=== PATIENT | male | born 1980 | race Caucasian/White ===

== ENCOUNTER 2018-03-19 09:12 | Emergency (ER) | payer BC, OTHER, SELFPAY ==
[2018-03-19] MEDS ORDERED: Morphine 10 MG/ML VIAL ONE (09:21)
[2018-03-19] MEDS ORDERED: Ondansetron ODT 4 MG TAB ONE (09:21)
[2018-03-19] MEDS ORDERED: Fentanyl 100 MCG/2 ML VIAL ONE (10:00)
--- NOTE | 2018-03-19 10:38 | RAD ---
FRONTAL VIEW CHEST: Date: 03/19/18 Reference made to 08/29/12. INDICATION: Injury, chest pain. FINDINGS: Lungs are clear. No effusion or pneumothorax. Cardiomediastinal silhouette is normal in size for port able technique. Osseous structures are nonacute in appearance. IMPRESSION: No focal consolidation. POS: [facility]
--- NOTE | 2018-03-19 10:42 | RAD ---
THREE VIEW LEFT HAND SERIES: Indication: Left hand injury. FINDINGS: Chronic osseous deformity involves the third digit with associated joint space narrowing of the IP benjamin int. There is a ventrally located osseous excrescence of the distal diaphysis of the third digit prox imal phalanx. Interspersed areas of punctate lucencies are present within the third digit proximal ph alanx. No evidence of acute fracture. IMPRESSION: Chronic appearing osseous deformity of the third digit with associated osseous excrescence and puncta te interspersed osseous lucencies as discussed above. This corresponds to sequellae from healed, duc te fracture deformity. POS: [facility]
--- NOTE | 2018-03-19 10:53 | RAD ---
TWO VIEWS LEFT SHOULDER: Date: 03-19-18 History: Injury to left shoulder. Reduction imaging. Comparison: 03-19-18 at 0945 hours. FINDINGS: There has been interval reduction in previously noted left anterior shoulder dislocation. No dislocat ion is seen on the current exam. There is no fracture identified. There is mild left acromioclavicula r joint osteoarthritis. No other findings. IMPRESSION: 1. Interval reduction of previously noted anterior shoulder dislocation. There is no dislocation or f racture seen on the current images. 2. Mild left acromioclavicular joint osteoarthritis. POS: [facility]
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
== END 2018-03-19 11:02 | disposition home or self-care (01) ==
LOC: MADERS 09:12
DX: S43.015A Anterior dislocation of left humerus, initial encounter (principal); S60.222A Contusion of left hand, initial encounter; K21.9 Gastro-esophageal reflux disease without esophagitis; F32.9 Major depressive disorder, single episode, unspecified; Z79.899 Other long term (current) drug therapy; W55.22XA Struck by cow, initial encounter
CPT/HCPCS: 23650; 71045; 96372; 96374; J2001; J2270; J3010; Q0162

== ENCOUNTER 2022-05-28 16:41 | Emergency (ER) | payer SELFPAY | END 2022-05-28 17:18 | disposition home or self-care (01) | LOC: MADERS 16:41 | DX: K04.7 Periapical abscess without sinus (principal); K03.81 Cracked tooth; K02.9 Dental caries, unspecified; K21.9 Gastro-esophageal reflux disease without esophagitis; F17.220 Nicotine dependence, chewing tobacco, uncomplicated | CPT/HCPCS: 99282 ==

== ENCOUNTER 2022-08-22 23:22 | Emergency (ER) | payer SELFPAY ==
[2022-08-22] MEDS ORDERED: Ketorolac Tromethamine 30 MG/ML VIAL ONE (23:46)
[2022-08-22] MEDS ORDERED: Ondansetron PF 4 MG/2 ML Vial ONE (23:53)
[2022-08-23 00:15] LABS: #Basophils 0.1 thou/uL (0.0-0.2); #Lymphocytes 1.1 thou/uL (1.20-3.40); #Monocytes 0.5 thou/uL (0.11-0.59); #Neutrophils 13.7 thou/uL (1.40-6.50); %Basophils 0.5 % (0.0-1.0); %Eosinophils 0.3 % (0.0-10.0); %Lymphocytes 6.8 % (21.0-51.0); %Monocytes 3.3 % (0.0-10.0); %Neutrophils 89.1 % (42.0-75.0); Hemoglobin 16.2 g/dL (14.0-18.0); Mean Corpuscular HGB CONC 33.9 g/dL (32.0-36.0); Mean Corpuscular Hemoglobin 29.2 pg (27.0-31.0); Mean Corpuscular Volume 86.2 fL (78.0-98.0); Mean Platelet Volume 6.5 fL (7.4-10.4); Platelet Count 408 thou/uL (130-400); Red Blood Cell (RBC) Count 5.53 mill/uL (4.70-6.10); White Blood Cell (WBC) Count 15.4 thou/uL (4.8-10.8)
[2022-08-23 00:26] LABS: Bilirubin Negative (Negative); Blood, Urine Large (Negative); Clarity Slightly Cloudy (Clear); Glucose, Urine (Dipstick) Negative (Negative); Ketone, Urine 15 mg/dL (Negative); Leukocyte Negative (Negative); Nitrite Negative (Negative); Protein, Urine (Dipstick) 30 mg/dL (Neg-Trace); Specific Gravity, Urine 1.026 (1.002-1.036); Urobilinogen 0.2 mg/dL (Less than 2)
[2022-08-23 00:27] LABS: Bacteria/HPF 1+ HPF (None Seen); Calcium Oxalate Crystals 2+ HPF (None Seen); RBC/HPF Greater than 50 HPF (0-3); Squamous Epithelial 0-3 HPF (0-3); WBC/HPF 0-3 HPF (0-3)
[2022-08-23 00:43] LABS: ALT (SGPT) 25 U/L (8-55); AST (SGOT) 24 U/L (5-34); Albumin 4.8 g/dL (3.5-5.0); Alkaline Phosphatase 63 U/L (40-110); Anion Gap 17 mmol/L (10-20); BUN (Urea Nitrogen) 15 mg/dL (8.9-20.6); Bilirubin, Total 0.6 mg/dL (0.2-1.2); Calc. Creatinine Clearance 0 mL/min (70-130); Carbon Dioxide 22 mmol/L (22-29); Chloride 106 mmol/L (98-107); Estimated GFR 64; Globulin 3.6 g/dL (2.4-3.5); Glucose 158 mg/dL (70-105); Lipase 93 U/L (8-78); Potassium 3.7 mmol/L (3.5-5.1); Protein, Total 8.4 g/dL (6.0-8.3); Sodium 141 mmol/L (136-145)
[2022-08-23] MEDS ORDERED: Tamsulosin HCl 0.4 MG CAP ONE (00:57)
== END 2022-08-23 01:20 | disposition home or self-care (01) ==
LOC: MADERS 23:22
DX: N13.2 Hydronephrosis with renal and ureteral calculous obstruction (principal); K21.9 Gastro-esophageal reflux disease without esophagitis; F17.220 Nicotine dependence, chewing tobacco, uncomplicated; Z79.899 Other long term (current) drug therapy
CPT/HCPCS: 74176; 80053; 81003; 81015; 83690; 85025; 96374; 96375; J1885; J2405

== ENCOUNTER 2024-04-07 21:42 | Emergency (ER) | payer SELFPAY ==
[2024-04-07] MEDS ORDERED: Morphine 4 MG/ML VIAL ONE ×2 (21:56→22:12)
[2024-04-07] MEDS ORDERED: Ondansetron PF 4 MG/2 ML Vial ONE (21:56)
[2024-04-07] MEDS ORDERED: HYDROmorphone 0.5 MG/0.5 ML SYRINGE ONE (22:14)
== END 2024-04-07 23:01 | disposition home or self-care (01) ==
LOC: MADERS 21:42
DX: S43.005A Unspecified dislocation of left shoulder joint, initial encounter (principal); F17.220 Nicotine dependence, chewing tobacco, uncomplicated; V80.010A Animal-rider injured by fall from or being thrown from horse in noncollision accident, initial encounter
CPT/HCPCS: 23650; 96374; 96375; J1170; J2270; J2405

== ENCOUNTER 2024-07-15 10:06 | Emergency (ER) | payer SELFPAY ==
[2024-07-15] MEDS ORDERED: Boostrix 0.5 ML (Tdap) VIAL (>/=7 yrs of age) ONE (10:29)
[2024-07-15] MEDS ORDERED: Lidocaine 1% (PF) 30 ML VIAL ONE (10:40)
[2024-07-15] MEDS ORDERED: Bacitracin 1 PK ONE (11:58)
== END 2024-07-15 12:03 | disposition home or self-care (01) ==
LOC: MADERS 10:06
DX: S61.411A Laceration without foreign body of right hand, initial encounter (principal); F17.220 Nicotine dependence, chewing tobacco, uncomplicated; Z23 Encounter for immunization; W26.0XXA Contact with knife, initial encounter
CPT/HCPCS: 12002; 90471; 90715; J2001